=== PATIENT | male | born 1940 | race African-American/Black ===

== ENCOUNTER 2018-08-20 13:00 | Inpatient (IN) | payer BC ==
[2018-08-24 14:23] VITALS: BMI 26.4
[2018-08-25 07:18] LABS: URINE APPEARANCE CLEAR; URINE BILIRUBIN NEGATIVE (<2.0 mg/dL); URINE COLOR STRAW; URINE GLUCOSE (UA) NEGATIVE (NEGATIVE); URINE KETONE NEGATIVE (NEGATIVE); URINE LEUK ESTERASE NEGATIVE (NEGATIVE); URINE NITRITE NEGATIVE (NEGATIVE); URINE PROTEIN NEGATIVE (NEGATIVE); URINE UROBILINOGEN NEGATIVE mg/dL (0.2-1.0)
[2018-08-25] MEDS ORDERED: CEFAZOLIN 2 GM in DEXTROSE 5%-WATER - 100 ML IVPB ONE (08:27)
[2018-08-25] MEDS ORDERED: MIDAZOLAM HCL 2 MG/2 ML SINGLE DOSE VIAL ONE ×2 (08:45)
[2018-08-25] MEDS ORDERED: PROPOFOL 20 ML ONE (08:45)
[2018-08-25] MEDS ORDERED: ROCURONIUM BROMIDE 50 MG/5 ML VIAL ONE ×2 (08:45→10:41)
[2018-08-25] MEDS ORDERED: niCARdipine HCL 25 MG/10 ML - 10 ML VIAL IVPB ONE (08:45)
[2018-08-25] MEDS ORDERED: fentaNYL CITRATE 250 MCG/5 ML VIAL ONE (08:45)
[2018-08-25] MEDS ORDERED: LIDOCAINE HCL/PF 2% SDV 5ML VIAL ONE (08:45)
[2018-08-25] MEDS ORDERED: LIDOCAINE HCL 0.5%, 5 MG/ML (50mL SDVIAL) ONE ×2 (09:08→10:18)
[2018-08-25] MEDS ORDERED: HEPARIN NA (PORCINE) 5,000 UNITS/ML 1ML VIAL ONE (09:08)
[2018-08-25] MEDS ORDERED: ceFAZolin SODIUM 1 GM VIAL IVPB ONE (10:10)
[2018-08-25] MEDS ORDERED: ceFAZolin SODIUM 1 GM VIAL ONE (10:30)
[2018-08-25] MEDS ORDERED: GLYCOPYRROLATE 0.2 MG/1 ML VIAL ONE ×2 (10:39→11:12)
[2018-08-25] MEDS ORDERED: ePHEDrine SULFATE 50 MG/1 ML AMPULE ONE (10:48)
[2018-08-25] MEDS ORDERED: BUPIVACAINE HCL/PF 0.25% (2.5MG/ML) 10 ML VIAL IJ ONE (11:00)
[2018-08-25] MEDS ORDERED: DEXAMETHASONE SOD PHOSPHATE 4 MG/1 ML VIAL ONE (11:12)
[2018-08-25] MEDS ORDERED: ONDANSETRON 4 MG/2 ML VIAL ONE (11:12)
[2018-08-25] MEDS ORDERED: NEOSTIGMINE METHYLSULFATE 0.5 MG/1 ML - 10 ML MDV ONE ×2 (11:13→11:31)
--- NOTE | 2018-08-25 11:43 | OP ---
Operative Note - Note: Operative Date: 08/25/18 Pre-Operative Diagnosis: Right carotid stenosis Operation: Right carotid endarterectomy Post-Operative Diagnosis: Same as Pre-op Surgeon: Latoya Garaz Fishing Tackle Repairer: Alfredo Gomez Anesthesia: General Estimated Blood Loss (mls): 50 Fluid Volume Replaced (mls): 1,000 Operative Report Dictated: Yes
--- NOTE | 2018-08-25 11:45 | SURG ---
Surgery Rug Inspector Note Rug Inspector: Alfredo Gomez PA-C Date of Service: 08/25/18 Diagnosis: Right carotid stenosis Procedure: Right Carotid endarterectomy I was present for the entirety of the operative procedure. For further detail, please refer to operative report. Visit type - Case Type Case Type: Scheduled - Emergency Emergency Visit: No - New patient This patient is new to me today: Yes Date on this admission: 08/25/18
[2018-08-25] MEDS ORDERED: ONDANSETRON 4 MG/2 ML VIAL IVPUSH PRN ×2 (12:17→14:23)
--- NOTE | 2018-08-25 12:22 | CONSULT ---
Consultation: REQUESTING PROVIDER: CONSULT REQUEST: We have been asked to medically evaluate this patient for ( specify). HISTORY OF PRESENT ILLNESS: 77 year old man with history of HTN, HLD, DM and R carotid stenosis who presents s/p R carotid endarterectomy. REVIEW OF SYSTEMS: CONSTITUTIONAL: Absent: fever, chills, diaphoresis, generalized weakness, malaise, loss of appetite, weight change HEENT: Absent: rhinorrhea, nasal congestion, throat pain, throat swelling, difficulty swallowing, mouth swelling, ear pain, eye pain, visual changes CARDIOVASCULAR: Absent: chest pain, syncope, palpitations, irregular heart rate, lightheadedness , peripheral edema RESPIRATORY: Absent: cough, shortness of breath, dyspnea with exertion, orthopnea, wheezing, stridor, hemoptysis GASTROINTESTINAL: Absent: abdominal pain, abdominal distension, nausea, vomiting, diarrhea, constipation, melena, hematochezia GENITOURINARY: Absent: dysuria, frequency, urgency, hesitancy, hematuria, flank pain, genital pain MUSCULOSKELETAL: Absent: myalgia, arthralgia, joint swelling, back pain, neck pain SKIN: Absent: rash, itching, pallor HEMATOLOGIC/IMMUNOLOGIC: Absent: easy bleeding, easy bruising, lymphadenopathy, frequent infections ENDOCRINE: Absent: unexplained weight gain, unexplained weight loss, heat intolerance, cold intolerance NEUROLOGIC: Absent: headache, focal weakness or paresthesias, dizziness, unsteady gait, seizure, mental status changes, bladder or bowel incontinence PSYCHIATRIC: Absent: anxiety, depression, suicidal or homicidal ideation, hallucinations. PHYSICAL EXAMINATION Vital Signs - 24 hr 08/25/18 08/25/18 08/25/18 07:55 07:57 11:50 Temperature 98.1 F 97.7 F Pulse Rate 72 62 Respiratory 18 9 L Rate Blood Pressure 150/86 148/74 O2 Sat by Pulse 99 100 Oximetry (%) 08/25/18 08/25/18 08/25/18 11:59 12:00 12:15 Temperature 98.4 F 98.4 F 97.8 F Pulse Rate 64 64 64 Respiratory 11 11 11 Rate Blood Pressure 155/81 155/81 148/82 O2 Sat by Pulse Oximetry (%) GENERAL: Awake, alert, on O2 mask HEAD: Normal with no signs of trauma. EYES: Pupils equal, round and reactive to light, extraocular movements intact, sclera anicteric, conjunctiva clear. No lid lag. EARS, NOSE, THROAT: Moist mucous membranes. NECK: + R sided wound dressing with sanguinous drainage LUNGS: Breath sounds equal, clear to auscultation bilaterally. No wheezes, and no crackles. No accessory muscle use. HEART: Regular rate and rhythm, normal S1 and S2 without murmur, rub or gallop. ABDOMEN: Soft, nontender, not distended, normoactive bowel sounds, no guarding, no rebound, no masses. No hepatomegaly or splenomegaly. MUSCULOSKELETAL: Normal range of motion at all joints. No bony deformities or tenderness. No CVA tenderness. UPPER EXTREMITIES: 2+ pulses, warm, well-perfused. No cyanosis. No clubbing. Cap refill <2 seconds. No peripheral edema. LOWER EXTREMITIES: 2+ pulses, warm, well-perfused. No calf tenderness. No peripheral edema. NEUROLOGICAL: awake, alert, on O2 mask PSYCHIATRIC: Cooperative. Good eye contact. SKIN: Warm, dry, normal turgor, no rashes or lesions noted. Laboratory Results - last 24 hr 08/25/18 08/25/18 08/25/18 07:10 07:10 08:10 POC Glucometer Urine Color Straw Urine Appearance Clear Urine pH 6.0 Ur Specific [place] 1.008 L Urine Protein Negative Urine Glucose (UA) Negative Urine Ketones Negative Urine Blood Negative Urine Nitrite Negative Urine Bilirubin Negative Urine Urobilinogen Negative Ur Leukocyte Esterase Negative Blood Type B POSITIVE B POSITIVE Antibody Screen Negative 08/25/18 08:15 POC Glucometer 129 Urine Color Urine Appearance Urine pH Ur Specific [place] Urine Protein Urine Glucose (UA) Urine Ketones Urine Blood Urine Nitrite Urine Bilirubin Urine Urobilinogen Ur Leukocyte Esterase Blood Type Antibody Screen Active Medications Generic Name Dose Route Start Last Admin Trade Name Freq PRN Reason Stop Dose Admin Amlodipine Besylate 5 mg 08/26/18 10:00 Norvasc - PO DAILY DIANE Aspirin 81 mg 08/25/18 11:45 Ecotrin - PO DAILY DIANE Atorvastatin Calcium 10 mg 08/25/18 22:00 Lipitor - PO HS DIANE Fentanyl 50 mcg 08/25/18 12:17 Sublimaze Injection - IVPUSH [id number] PRN PAIN-PACU ORDER X 4 DOSES ONLY Cefazolin Sodium 2 gm/ 100 mls @ 200 mls/hr 08/25/18 18:00 Dextrose IVPB 08/26/18 02:29 Q8HIV DIANE Lactated Ringer's 1,000 mls @ 75 mls/hr 08/25/18 12:30 Lactated Ringers Solution IV ASDIR DIANE Nicardipine HCl 25 mg/ 250 mls @ 25 mls/hr 08/25/18 12:30 Dextrose IVPB TITR DIANE Protocol 2.5 MG/HR Metformin HCl 1,000 mg 08/25/18 22:00 Glucophage - PO BID DIANE Non-Formulary Medication 100 mg 08/26/18 10:00 Losartan Potassium [Losartan Potassium] PO DAILY DIANE Ondansetron HCl 4 mg 08/25/18 12:17 Zofran Injection IVPUSH Q6H PRN NAUSEA AND/OR VOMITING ASSESSMENT/PLAN: 77 year old man with history of HTN, HLD, DM and R carotid stenosis who presents s/p R carotid endarterectomy. Vascular R carotid stenosis s/p carotid endartectomy - Neuro check Q2H - BP monitoring < 160 systolic Cardio HTN, HLD - Amlodipine 5mg daily - ASA 81 mg daily - Atorvastatin 10mg HS - Losartan 100mg daily - Nicardipine 2.5mg/hr gtt Pulm - 5L on O2 mask, supplemental oxygen as needed - IS Endo DM - Metformin 1gm BID Analgesia - Fentanyl 50mcg IVP F/E/N - LR @ 75 - diabetic diet GI ppx: DVT ppx: SCDs Lines, Tubes: JARROD drain at R incision site, PIV Code status: Full Dispo: We will continue to follow the patient. Thank you for this consultative opportunity. Visit type - Emergency Visit Emergency Visit: No - New Patient This patient is new to me today: Yes Date on this admission: 08/25/18 - Critical Care Critical Care patient: Yes Total Critical Care Time (in minutes): 35 Critical Care Statement: The care of this patient involved high complexity decision making to prevent further life threatening deterioration of the patient 's condition and/or to evaluate & treat vital organ system(s) failure or risk of failure.
[2018-08-25] MEDS: LACTATED RINGERS SOLUTION 1,000 ML IV SCH (12:40)
[2018-08-25] MEDS ORDERED: NICARDIPINE 25 MG in DEXTROSE 5%-WATER - 240 ML IVPB SCH (12:45)
--- NOTE | 2018-08-25 12:49 | OP ---
DATE OF OPERATION: 08/25/2018 PREOPERATIVE DIAGNOSIS: High grade right carotid stenosis with history of amaurosis fugax. POSTOPERATIVE DIAGNOSIS: High grade right carotid stenosis with history of amaurosis fugax. OPERATIVE PROCEDURE: Right carotid endarterectomy and jugular vein patch. SURGEON: Lea Garza MD LOGGING ENGINEER: SIMRAN Nunes ANESTHESIA: General endotracheal intubation. DESCRIPTION OF PROCEDURE: This 77-year-old man was sent to the office for evaluation of the high grade right carotid stenosis. Patient had apparently history of amaurosis fugax, but no TIA or strokes, and patient had a preoperative evaluation with MRA and carotid. Both showed 90% carotid stenosis. Patient was brought to the operating room, and the right neck was prepped and draped in the usual manner, and general anesthesia was administered, intravenous antibiotic was given, and a common carotid internal and external were isolated in the usual manner by dissection in the carotid sheath, and during the course of the surgery, external jugular vein was harvested a distance of about 6-7 cm long, and both ends were tied with 2-0 silk, and plaque was found to be going high up in the neck, and the was isolated beyond the plaque, and care was taken to avoid injury to the hypoglossal nerve, glossopharyngeal nerve, and the vagus nerve, and all of them were visualized and preserved. Following which, the patient was given 5000 units of heparin, and arteries were appropriately clamped, and Bard shunt was introduced initially in the internal, and it was then put into the common and flow was established after adequately freshening the shunt, and the findings showed a tight stenosis with subhemorrhagic plaque and with some fresh thrombus, and endarterectomy was done with all the plaque removed completely. Once the smooth surface of the floor of the endarterectomy site was established, the jugular vein which was used was everted and patched as a double layer, starting from the internal and into the common, and prior to closing, the shunt was removed, and it was flushed appropriately, and the flow was established initially into the external and to the internal, and after adequate hemostasis, a Cristian-Burton was introduced, brought through the separate skin incision. Marcaine was injected. Platysma and the skin were closed, and patient went to the recovery room extubated with no neurological deficit. LEA GARZA M.D. /[id number]
[2018-08-25] MEDS: ASPIRIN COATED 81 MG TABLET.EC PO SCH (13:30)
--- NOTE | 2018-08-25 14:46 | HP ---
CHIEF COMPLAINT: S/p CEA PCP: Oralia Sibley MD HISTORY OF PRESENT ILLNESS: 77 year old man with a PMH significant for HTN, HLD, DM, prostate ca s/p prostatectomy, and high grade right carotid stenosis with hx of amaurosis fugax had right carotid endarterectomy today with vascular surgeon Dr. Garza. Pre- op MRA and carotid US showed 90% carotid stenosis. Procedure was without complications and a large plaque was removed from the artery. JARROD drain was placed. Patient admitted to the ICU for post op monitoring. . Patient noted with saturated gauze with sanginous drainage. Surgery team placed suture to secure drain and surgicell dressing. JARROD drain patent with sero-sang drainage. Recent Travel: [place] in January PAST MEDICAL HISTORY: HTN HLD DM R carotid stenosis Glaucoma Gout Prostate cancer s/p radiation PAST SURGICAL HISTORY: Prostatectomy 2010 Cataract surgery Social History: Smoking: Former Alcohol: No Drugs: Denies Family History: Mother: [place], age 50 Father Brother: Prostate cancer Sister: Breast cancer, Allergies No Known Allergies Allergy (Verified 08/25/18 07:59) HOME MEDICATIONS: Home Medications Medication Instructions Recorded Amlodipine Besylate 5 mg PO DAILY 08/24/18 Atorvastatin Ca [Lipitor] 10 mg PO HS 08/24/18 Losartan Potassium 100 mg PO DAILY 08/24/18 metFORMIN HCL [Glucophage -] 1,000 mg PO BID 08/24/18 REVIEW OF SYSTEMS CONSTITUTIONAL: Absent: fever, chills, diaphoresis, generalized weakness, malaise, loss of appetite, weight change HEENT: Absent: rhinorrhea, nasal congestion, throat pain, throat swelling, difficulty swallowing, mouth swelling, ear pain, eye pain, visual changes CARDIOVASCULAR: Absent: chest pain, syncope, palpitations, irregular heart rate, lightheadedness , peripheral edema RESPIRATORY: Absent: cough, shortness of breath, dyspnea with exertion, orthopnea, wheezing, stridor, hemoptysis GASTROINTESTINAL: Absent: abdominal pain, abdominal distension, nausea, vomiting, diarrhea, constipation, melena, hematochezia GENITOURINARY: Absent: dysuria, frequency, urgency, hesitancy, hematuria, flank pain, genital pain MUSCULOSKELETAL: Absent: myalgia, arthralgia, joint swelling, back pain, neck pain SKIN: Absent: rash, itching, pallor HEMATOLOGIC/IMMUNOLOGIC: Absent: easy bleeding, easy bruising, lymphadenopathy, frequent infections ENDOCRINE: Absent: unexplained weight gain, unexplained weight loss, heat intolerance, cold intolerance NEUROLOGIC: Absent: headache, focal weakness or paresthesias, dizziness, unsteady gait, seizure, mental status changes, bladder or bowel incontinence PSYCHIATRIC: Absent: anxiety, depression, suicidal or homicidal ideation, hallucinations. PHYSICAL EXAMINATION Vital Signs - 24 hr 08/25/18 08/25/18 08/25/18 07:55 07:57 11:50 Temperature 98.1 F 97.7 F Pulse Rate 72 62 Respiratory 18 9 L Rate Blood Pressure 150/86 148/74 O2 Sat by Pulse 99 100 Oximetry (%) 08/25/18 08/25/18 08/25/18 11:59 12:00 12:15 Temperature 98.4 F 98.4 F 97.8 F Pulse Rate 64 64 64 Respiratory 11 11 11 Rate Blood Pressure 155/81 155/81 148/82 O2 Sat by Pulse Oximetry (%) 08/25/18 08/25/18 08/25/18 12:30 12:45 13:02 Temperature 97.4 F L 97.5 F L Pulse Rate 62 58 L 59 L Respiratory 11 11 11 Rate Blood Pressure 150/75 144/64 150/82 O2 Sat by Pulse Oximetry (%) 08/25/18 13:28 Temperature Pulse Rate 59 L Respiratory Rate Blood Pressure 160/82 O2 Sat by Pulse Oximetry (%) GENERAL: Awake, alert, and fully oriented, in no acute distress. HEAD: Normal with no signs of trauma. EYES: Arcus senilis b/l, Pupils equal, round and reactive to light, extraocular movements intact, sclera anicteric, conjunctiva clear. No lid lag. EARS, NOSE, THROAT: Ears normal, nares patent, oropharynx clear without exudates. Moist mucous membranes. NECK: Normal range of motion, supple without lymphadenopathy, JVD, or masses. LUNGS: Breath sounds equal, clear to auscultation bilaterally. No wheezes, and no crackles. No accessory muscle use. HEART: Regular rate and rhythm, normal S1 and S2 without murmur, rub or gallop. ABDOMEN: Soft, nontender, not distended, normoactive bowel sounds, no guarding, no rebound, no masses. No hepatomegaly or splenomegaly. MUSCULOSKELETAL: Normal range of motion at all joints. No bony deformities or tenderness. No CVA tenderness. UPPER EXTREMITIES: 2+ pulses, warm, well-perfused. No cyanosis. No clubbing. No peripheral edema. LOWER EXTREMITIES: 2+ pulses, warm, well-perfused. No calf tenderness. No peripheral edema. NEUROLOGICAL: Cranial nerves II-XII intact. Normal speech. Normal gait. PSYCHIATRIC: Cooperative. Good eye contact. Appropriate mood and affect. SKIN: Warm, dry, normal turgor, no rashes or lesions noted, normal capillary refill. Laboratory Results - last 24 hr 08/25/18 08/25/18 08/25/18 07:10 07:10 08:10 POC Glucometer Urine Color Straw Urine Appearance Clear Urine pH 6.0 Ur Specific [place] 1.008 L Urine Protein Negative Urine Glucose (UA) Negative Urine Ketones Negative Urine Blood Negative Urine Nitrite Negative Urine Bilirubin Negative Urine Urobilinogen Negative Ur Leukocyte Esterase Negative Blood Type B POSITIVE B POSITIVE Antibody Screen Negative 08/25/18 08:15 POC Glucometer 129 Urine Color Urine Appearance Urine pH Ur Specific [place] Urine Protein Urine Glucose (UA) Urine Ketones Urine Blood Urine Nitrite Urine Bilirubin Urine Urobilinogen Ur Leukocyte Esterase Blood Type Antibody Screen ASSESSMENT/PLAN: 77 year old man with a PMH significant for HTN, HLD, DM and R carotid stenosis had right carotid endarterectomy today with vascular surgeon Dr. Garza. He was admitted to the ICU for post op monitoring. Carotid endarterectomy - High grade right carotid stenosis with hx of amaurosis fugax - PO day 0 - Ancef 2 G IVP q8h x 24 hrs - + JARROD drain with sanguinous drainage - P/o bleeding, gauze saturated with reji blood from 2 sites along incision - Gauze changed 3x - Surgical team placed one suture to secure drain - Surgicell placed around drain ostomy with 4x4 dressing and tegaderms. - Now with hematoma - Monitor CBC - Pain management - HEALTH SUPPORT SPECIALIST with Fentanyl HTN - Maintain SBP < 160 - ASA 81 mg PO qday - Amlodipine 5 mg PO qday - Losartan 100 mg PO qday - Nicardipine 2.5mg/hr gtt HLD - Atorvastatin 10 mg PO QHS DM - HOLD home Metformin 1000 mg PO qday - Fingerstick monitoring - SS with novolog FEN - LR @ 75 cc/hr - Replete as needed - Diabetic, low cholesterol diet Prophylaxis - SCDs, no AC until after bleeding has subsided Disp: Patient requires management in the ICU until stable enough to [facility] floor. Visit type - Emergency Visit Emergency Visit: No - New Patient This patient is new to me today: No - Critical Care Critical Care patient: Yes Total Critical Care Time (in minutes): 35 Critical Care Statement: The care of this patient involved high complexity decision making to prevent further life threatening deterioration of the patient 's condition and/or to evaluate & treat vital organ system(s) failure or risk of failure.
--- NOTE | 2018-08-25 14:51 | PN ---
Progress Note (short form) - Note Progress Note: Called to the ICU to evaluate post op dressing. Patient A&Ox3 NAD with unlabored resp on RA and trachea midline. Patient with no evidence of airway compromise or dysphagia. The gauze dressing is completely saturated with blood and actively draining reji blood from 2 sites along the incision with steven in situ. There is evidence of a hematoma along proximal margin of the incision, no pulsatile mass on exam. The drain is securely in place with some active bleeding around the drain ostomy. Drain with 30cc of reji blood (60cc after drain stripped.) Surgicell was placed along the incision margin and around the drain ostomy, then reinforced with a bulky 4x4 dressing and tegaderms. Will order CBC this evening and re-evaluate the patient later this afternoon. Evaluation and management discussed with Dr Garza.
[2018-08-25 16:01] LABS: BASO % 0.2 % (0-2.0); EOS % 0.1 % (0-4.5); HEMATOCRIT 35.3 % (35.4-49); HEMOGLOBIN 12.2 GM/dL (11.7-16.9); LYMPH % 4.8 % (8-40); MCH 29.7 pg (25.7-33.7); MCHC 34.7 g/dl (32.0-35.9); MEAN CELL VOLUME 85.6 fl (80-96); MONO % 3.3 % (3.8-10.2); NEUT % 91.6 % (42.8-82.8); PLATELET COUNT 140 K/MM3 (134-434); RBC 4.12 M/mm3 (4.00-5.60); RDW 14.6 % (11.9-15.9); WHITE BLOOD COUNT 8.8 K/mm3 (4.0-10.0)
[2018-08-25 16:23] LABS: ALBUMIN 3.5 g/dl (3.4-5.0); ALK PHOS 65 U/L (45-117); ANION GAP 10 MMOL/L (8-16); BILIRUBIN,TOTAL 0.8 mg/dL (0.2-1); BLOOD UREA NITROGEN 17 mg/dL (7-18); CALCIUM 8.6 mg/dL (8.5-10.1); CHLORIDE 106 mmol/L (98-107); CO2 23 mmol/L (21-32); CREATININE 1.2 mg/dL (0.55-1.3); GLUCOSE,RANDOM 159 mg/dL (74-106); MAGNESIUM 1.5 mg/dL (1.8-2.4); PHOSPHOROUS 3.5 mg/dL (2.5-4.9); POTASSIUM 4.6 mmol/L (3.5-5.1); SGOT/AST 20 U/L (15-37); SGPT/ALT 19 U/L (13-61); SODIUM 138 mmol/L (136-145); TOT PROT 6.9 g/dl (6.4-8.2)
[2018-08-25 16:26] LABS: INR 1.23 (0.83-1.09); PROTHROMBIN TIME (PATIENT) 14.6 SEC (9.7-13.0)
[2018-08-25] MEDS ORDERED: INSULIN SLIDING SCALE (NOVOLOG) 1 VIAL SQ SCH (16:30)
[2018-08-25] MEDS ORDERED: metFORMIN HCL 500 MG TABLET (FP) PO SCH (16:45)
[2018-08-25 17:10] LABS: PLATELET ESTIMATE ADEQUATE
[2018-08-25] MEDS: CEFAZOLIN 2 GM/D5W 2 GM/50 ML ML IVPB SCH (17:22)
[2018-08-25] MEDS ORDERED: amLODIPine BESYLATE 5 MG TABLET (FP) PO ONE (20:15)
[2018-08-25] MEDS: MUPIROCIN 2% TOPICAL OINTMENT FOR DECOLONIZATION NS SCH (21:38)
[2018-08-25] MEDS: INSULIN SLIDING SCALE (NOVOLOG) 1 VIAL SQ SCH (21:57)
[2018-08-25] MEDS ORDERED: ATORVASTATIN CA 10 MG TABLET (FP) PO SCH (22:00)
[2018-08-25] MEDS ORDERED: CHLORHEXIDINE GLUCONATE 4% CLEANSER FOR DECOLONIZATION TP SCH (22:00)
[2018-08-25] MEDS ORDERED: ACETAMINOPHEN 500 MG TABLET (FP) PO PRN (23:11)
[2018-08-26] MEDS: CEFAZOLIN 2 GM/D5W 2 GM/50 ML ML IVPB SCH ×2 (01:17→10:04)
[2018-08-26] MEDS: LACTATED RINGERS SOLUTION 1,000 ML IV SCH (01:19)
[2018-08-26 06:07] LABS: BASO % 0.3 % (0-2.0); EOS % 0.3 % (0-4.5); HEMATOCRIT 31.6 % (35.4-49); HEMOGLOBIN 10.4 GM/dL (11.7-16.9); LYMPH % 14.1 % (8-40); MCH 28.1 pg (25.7-33.7); MCHC 32.9 g/dl (32.0-35.9); MEAN CELL VOLUME 85.7 fl (80-96); MEAN PLT VOLUME 9.6 fl (7.5-11.1); MONO % 10.4 % (3.8-10.2); NEUT % 74.9 % (42.8-82.8); PLATELET COUNT 124 K/MM3 (134-434); RBC 3.69 M/mm3 (4.00-5.60); RDW 14.5 % (11.9-15.9); WHITE BLOOD COUNT 7.3 K/mm3 (4.0-10.0)
[2018-08-26 06:20] LABS: INR 1.28 (0.83-1.09); PROTHROMBIN TIME (PATIENT) 15.1 SEC (9.7-13.0)
[2018-08-26 06:21] LABS: ACTIVATED PTT 33.8 SECONDS (25.2-36.5)
[2018-08-26 06:33] LABS: ALK PHOS 51 U/L (45-117); ANION GAP 8 MMOL/L (8-16); BILIRUBIN,TOTAL 0.6 mg/dL (0.2-1); BLOOD UREA NITROGEN 21 mg/dL (7-18); CALCIUM 8.5 mg/dL (8.5-10.1); CHLORIDE 104 mmol/L (98-107); CO2 27 mmol/L (21-32); CREATININE 1.4 mg/dL (0.55-1.3); GLUCOSE,RANDOM 125 mg/dL (74-106); MAGNESIUM 1.5 mg/dL (1.8-2.4); PHOSPHOROUS 3.9 mg/dL (2.5-4.9); POTASSIUM 4.3 mmol/L (3.5-5.1); SGOT/AST 17 U/L (15-37); SGPT/ALT 15 U/L (13-61); SODIUM 139 mmol/L (136-145); TOT PROT 5.9 g/dl (6.4-8.2)
[2018-08-26] MEDS: INSULIN SLIDING SCALE (NOVOLOG) 1 VIAL SQ SCH ×2 (06:35→11:38)
[2018-08-26] MEDS ORDERED: MAGNESIUM SULF 50% (8.12 MEQ/2 ML-1 GM VIAL) IVPB ONE ×2 (08:00→09:30)
--- NOTE | 2018-08-26 08:07 | PN ---
Progress Note (short form) - Note Progress Note: POD #1 Alert. Sitting-up in bed. C/o mild incisional tenderness. Adequate pain control via PRN PO meds. Per yesterday note s/p procedure, SIMRAN Gomez was called secondary to oozing around JARROD site. Surgicel applied. Good hemostasis...no bleeding since. He is voiding. Denies n/v/f/c/, CP, SOB, numbness/tingling to UE. Last Vital Signs Temp Pulse Resp BP Pulse Ox 98.8 F 62 12 117/68 95 08/26/18 06:00 08/26/18 06:00 08/26/18 06:00 08/26/18 06:00 08/26/18 06:00 CBC, BMP 08/26/18 05:30 08/26/18 05:30 OUTPUT 08/25/18 08/25/1818 08/26/18 15:00 18:28 23:00 06:33 JARROD 55 20 30 15 PE Gen: nad Neck: JARROD on bulb suction (serosang). Transverse incision with steven c/d/i. Soft tissues. No palpable hematoma. Neuro: Negative lingual deviation. Shoulder shrug bilat intact 5/5 Problem List - Problems (1) Carotid stenosis, right Assessment/Plan: POD #1 s/p Right CEA Doing well. Advance diet as tolerated. Cont Incentive spirometer. JARROD removed on rounds. Script for Tramadol escribed. f/u with Dr. Garza as outlined in DC PLAN. Cleared for dc home this morning. Above plan discussed with my attending and agrees. Code(s): I65.21 - OCCLUSION AND STENOSIS OF RIGHT CAROTID ARTERY
[2018-08-26] MEDS ORDERED: amLODIPine BESYLATE 5 MG TABLET (FP) PO SCH (10:00)
[2018-08-26] MEDS ORDERED: LOSARTAN POTASSIUM 50 MG TABLET (FP) PO SCH (10:00)
[2018-08-26] MEDS: MUPIROCIN 2% TOPICAL OINTMENT FOR DECOLONIZATION NS SCH (10:00)
[2018-08-26] MEDS: ASPIRIN COATED 81 MG TABLET.EC PO SCH (10:00)
[2018-08-26 10:38] VITALS: TEMP 99.6
--- NOTE | 2018-08-26 11:04 | PN ---
Teaching Attending Note Name of Resident: Janice Yang ATTENDING PHYSICIAN STATEMENT I saw and evaluated the patient. I reviewed the resident's note and discussed the case with the resident. I agree with the resident's findings and plan as documented. SUBJECTIVE: Pt seen and examined in the ICU. s/p R CEA without reported complications. No specific complaints this AM. No headache, nausea or vomiting. No focal deficits. Tolerating PO. OBJECTIVE: Vital Signs Period Temp Pulse Resp BP Sys/[place] Pulse Ox Last 24 Hr 97.4 F-100 F 58-82 9-19 97-160/55-82 95-100 Intake & Output 08/23/18 08/24/18 08/25/18 08/26/18 23:59 23:59 23:59 23:59 Intake Total 2677.5 1900 Output Total 455 315 Balance 2222.5 1585 Weight 86.183 kg Gen: NAD in chair Heart: RRR Lung: decreased breath sounds at the bases Abd: soft, nontender Ext: no edema CBC, BMP 08/26/18 05:30 08/26/18 05:30 Active Medications Acetaminophen (Tylenol -) 1,000 mg PO Q6H PRN PRN Reason: fever or pain Amlodipine Besylate (Norvasc -) 5 mg PO DAILY [facility] Last Admin: 08/26/18 10:00 Dose: 5 mg Aspirin (Ecotrin -) 81 mg PO DAILY [facility] Last Admin: 08/26/18 10:00 Dose: 81 mg Atorvastatin Calcium (Lipitor -) 10 mg PO HS [facility] Last Admin: 08/25/18 21:12 Dose: 10 mg Chlorhexidine Gluconate (Hibiclens For Decolonization -) 1 applic TP [facility] Last Admin: 08/25/18 21:12 Dose: 1 applic Fentanyl (Sublimaze Injection -) 50 mcg IVPUSH [id number] PRN PRN Reason: PAIN-PACU ORDER X 4 DOSES ONLY Last Admin: 08/25/18 12:29 Dose: 50 mcg Cefazolin Sodium/Dextrose (Ancef 2 Gm Premixed Ivpb -) 2 gm in 50 mls @ 100 mls /hr IVPB Q8HIV [facility] Stop: 08/26/18 17:59 Last Admin: 08/26/18 10:04 Dose: 100 mls/hr Lactated Ringer's (Lactated Ringers Solution) 1,000 mls @ 75 mls/hr IV ASDIR [facility] Last Admin: 08/26/18 01:19 Dose: 75 mls/hr Nicardipine HCl 25 mg/ (Dextrose) 250 mls @ 25 mls/hr IVPB TITR [facility]; Protocol Last Titration: 08/25/18 14:30 Dose: 0 mg/hr, 0 mls/hr Insulin Aspart (Novolog Vial Sliding Scale -) 1 vial SQ ACHS [facility]; Protocol Last Admin: 08/26/18 06:35 Dose: Not Given Losartan Potassium (Cozaar -) 100 mg PO DAILY [facility] Last Admin: 08/26/18 10:00 Dose: 100 mg Mupirocin (Bactroban Ointment (For Decolonization) -) 1 applic NS BID [facility] Stop: 08/30/18 21:59 Last Admin: 08/26/18 10:00 Dose: 1 applic Ondansetron HCl (Zofran Injection) 4 mg IVPUSH Q6H PRN PRN Reason: NAUSEA AND/OR VOMITING Last Admin: 08/25/18 14:19 Dose: 4 mg Ondansetron HCl (Zofran Injection) 4 mg IVPUSH Q6H PRN PRN Reason: NAUSEA AND/OR VOMITING ASSESSMENT AND PLAN: R Carotid Stenosis s/p R CEA POD 1 Acute Kidney Injury HTN DM Hyperlipidemia Prostate Ca - BP control - neuro checks - IVF - monitor urine output, creatinine - ASA, statin - d/c planning in progress
--- NOTE | 2018-08-26 12:11 | DS ---
Physical Exam: SUBJECTIVE: Patient seen and examined he reports he is feeling well and he as tolerated food. Denies pain. Cleared for d/c today OBJECTIVE: Vital Signs Period Temp Pulse Resp BP Sys/Caballero Pulse Ox Last 24 Hr 97.4 F-100 F 58-82 10-19 97-160/55-82 95-100 PHYSICAL EXAM GENERAL: The patient is awake, alert, and fully oriented, in no acute distress. HEAD: Normal with no signs of trauma. EYES: Arcus senils b/lPERRL, extraocular movements intact, sclera anicteric, conjunctiva clear. ENT: Ears normal, nares patent, oropharynx clear without exudates, moist mucous membranes. NECK: +Dry gauze to base of right neck, no strike trhough, trachea midline, full range of motion, supple. LUNGS: Breath sounds equal, clear to auscultation bilaterally, no wheezes, no crackles, no accessory muscle use. HEART: Regular rate and rhythm, S1, S2 without murmur, rub or gallop. ABDOMEN: Soft, nontender, nondistended, normoactive bowel sounds, no guarding, no rebound, no hepatosplenomegaly, no masses. EXTREMITIES: 2+ pulses, warm, well-perfused, no edema. NEUROLOGICAL: No facial droop, tongue midline, normal speech, gait not observed. PSYCH: Normal mood, normal affect. SKIN: Warm, dry, normal turgor, no rashes or lesions noted. LABS Laboratory Results - last 24 hr 08/25/18 08/25/18 08/25/18 13:50 14:45 14:45 WBC 8.8 RBC 4.12 Hgb 12.2 Hct 35.3 L MCV 85.6 MCH 29.7 MCHC 34.7 RDW 14.6 Plt Count 140 MPV 10.0 Absolute Neuts (auto) 8.0 Neutrophils % 91.6 H Neutrophils % (Manual) 78.0 Band Neutrophils % 13.0 Lymphocytes % 4.8 L Lymphocytes % (Manual) 7.0 L Monocytes % 3.3 L Monocytes % (Manual) 2 L Eosinophils % 0.1 Eosinophils % (Manual) 0.0 Basophils % 0.2 Basophils % (Manual) 0.0 Nucleated RBC % 0 Platelet Estimate Adequate PT with INR INR PTT (Actin FS) Sodium 138 Potassium 4.6 Chloride 106 Carbon Dioxide 23 Anion Gap 10 BUN 17 Creatinine 1.2 Creat Clearance w eGFR 58.56 POC Glucometer [phone] Random Glucose 159 H Calcium 8.6 Phosphorus 3.5 Magnesium 1.5 L Total Bilirubin 0.8 AST 20 ALT 19 Alkaline Phosphatase 65 Total Protein 6.9 Albumin 3.5 08/25/18 08/25/18 08/25/18 14:45 14:45 17:19 WBC RBC Hgb Hct MCV MCH MCHC RDW Plt Count MPV Absolute Neuts (auto) Neutrophils % Neutrophils % (Manual) Band Neutrophils % Lymphocytes % Lymphocytes % (Manual) Monocytes % Monocytes % (Manual) Eosinophils % Eosinophils % (Manual) Basophils % Basophils % (Manual) Nucleated RBC % Platelet Estimate PT with INR 14.60 H INR 1.23 H PTT (Actin FS) 30.5 Sodium Potassium Chloride Carbon Dioxide Anion Gap BUN Creatinine Creat Clearance w eGFR POC Glucometer [phone] Random Glucose Calcium Phosphorus Magnesium Total Bilirubin AST ALT Alkaline Phosphatase Total Protein Albumin 08/25/18 08/26/18 08/26/18 21:44 05:30 05:30 WBC 7.3 RBC 3.69 L Hgb 10.4 L Hct 31.6 L MCV 85.7 MCH 28.1 MCHC 32.9 RDW 14.5 Plt Count 124 L MPV 9.6 Absolute Neuts (auto) 5.4 Neutrophils % 74.9 Neutrophils % (Manual) Band Neutrophils % Lymphocytes % 14.1 D Lymphocytes % (Manual) Monocytes % 10.4 H D Monocytes % (Manual) Eosinophils % 0.3 D Eosinophils % (Manual) Basophils % 0.3 Basophils % (Manual) Nucleated RBC % 0 Platelet Estimate PT with INR 15.10 H INR 1.28 H PTT (Actin FS) 33.8 Sodium Potassium Chloride Carbon Dioxide Anion Gap BUN Creatinine Creat Clearance w eGFR POC Glucometer [phone] Random Glucose Calcium Phosphorus Magnesium Total Bilirubin AST ALT Alkaline Phosphatase Total Protein Albumin 08/26/18 08/26/18 05:30 11:31 WBC RBC Hgb Hct MCV MCH MCHC RDW Plt Count MPV Absolute Neuts (auto) Neutrophils % Neutrophils % (Manual) Band Neutrophils % Lymphocytes % Lymphocytes % (Manual) Monocytes % Monocytes % (Manual) Eosinophils % Eosinophils % (Manual) Basophils % Basophils % (Manual) Nucleated RBC % Platelet Estimate PT with INR INR PTT (Actin FS) Sodium 139 Potassium 4.3 Chloride 104 Carbon Dioxide 27 Anion Gap 8 BUN 21 H Creatinine 1.4 H Creat Clearance w eGFR 49.01 POC Glucometer [phone] Random Glucose 125 H Calcium 8.5 Phosphorus 3.9 Magnesium 1.5 L Total Bilirubin 0.6 AST 17 ALT 15 Alkaline Phosphatase 51 Total Protein 5.9 L Albumin 3.0 L HOSPITAL COURSE: Date of Admission:08/25/18 Date of Discharge: 08/26/18 77 year old man with a PMH significant for HTN, HLD, DM and R carotid stenosis had right carotid endarterectomy 08/25/[address] Garza. He was admitted to the ICU for post op monitoring. Cleared for d/c today Carotid endarterectomy - High grade right carotid stenosis with hx of amaurosis fugax - PO day 1 - Ancef 2 G IVP q8h x 24 hrs - + JARROD drain removed - P/o bleeding, gauze saturated with reji blood from 2 sites along incision - Gauze changed 3x - Surgical team placed one suture to secure drain - Surgicell placed around drain ostomy with 4x4 dressing and tegaderms. - Bleeding controlled. - Monitor CBC - Pain management with PO Tramadol - Advance diet as tolerated Acute blood loss anemia - Hgb 12.2 -> 10.4 - Secondary to post op blood loss around JARROD drain site - PA added suture to secure drain; bleeding controlled - VSS - Monitor CBC HTN - Maintain SBP < 160 - ASA 81 mg PO qday - Amlodipine 5 mg PO qday - Losartan 100 mg PO qday - D/c Nicardipine 2.5mg/hr gtt HLD - Atorvastatin 10 mg PO QHS DM - Resume home Metformin 1000 mg PO qday Minutes to complete discharge: 30 Discharge Summary Reason For Visit: HIGH GRADE STENOSIS Current Active Problems Carotid stenosis, right (Acute) - Instructions Diet, Activity, Other Instructions: Dr. Garza Discharge Instructions Dear KAILYN SNADS, Post Operative Instructions Physical activity Resume your normal everyday activity as tolerated no heavy lifting or exercise until seen by your surgeon. You may walk unlimited amounts of and climb stairs. You may resume driving the car when you feel safe and comfortable behind the wheel. Wound care If you have a bandage, leave it on, and keep dry for 48 - 72 hours. After that time discard the outer bandage. If there are tapes on the skin under the outer bandage, leave them in place. They will peel off in the next 7 to 10 days. Do Not peel them off. You may shower 2 days after surgery. If there are tapes present on the skin, they can get wet. Diet There are no dietary restrictions. Eat healthy, high-fiber foods. Drink 6 to 8 glasses of liquid each day. This will assist in keeping your bowels are regular. Pain management You may take Tylenol or acetaminophen or Ibuprofen (for example, Motrin, Advil etc.) Any pain prescription medication ordered should be taken as prescribed for moderate to severe pain. Call Dr. Garza for any of the following: Severe pain not relieved by medication Fever of 101 or higher Excessive bleeding or drainage on dressing Call the office for a post operative appointment in 7 - 10 days. Referrals: Latoya Garza MD [Staff Physician] - Disposition: HOME - Home Medications Comprehensive Discharge Medication List: Ambulatory Orders Amlodipine Besylate 5 mg PO DAILY 08/24/18 Atorvastatin Ca [Lipitor] 10 mg PO HS 08/24/18 Losartan Potassium 100 mg PO DAILY 08/24/18 metFORMIN HCL [Glucophage -] 1,000 mg PO BID 08/24/18 Tramadol HCl 50 mg PO Q6H PRN #30 tablet MDD 4 08/26/18 This patient is new to me today: No Emergency Visit: No Critical Care patient: No - Discharge Referral Referred to [facility] No
[2018-08-26 13:07] VITALS: BP 121/56; PULSE 75
--- NOTE | 2018-08-26 13:25 | PATH ---
Surgical Pathology Report Patient Name: KAILYN SANDS [facility]. Rec. #: [id number] /Age/Gender: 1940 (Age: 77) / M Account: [id number] Location: ICU BAR HOST Taken: 08/25/2018 Received: 08/25/2018 Reported: 08/26/2018 Physicians: Latoya Garza M.D. Specimen(s) Received RIGHT CAROTID PLAQUE Clinical History High-grade stenosis Final Diagnosis CAROTID PLAQUE, RIGHT, ENDARTERECTOMY: ATHEROMATOUS AND CALCIFIED PLAQUE. Electronically Signed Sarah Balderas M.D. Gross Description Received in formalin labeled "right carotid plaque," is a 5 cm in length amezcua-yellow, bifurcated portion of plaque. [employer] Att[employer] sections are submitted in one cassette. 08/25/201808/25/2018
--- NOTE | 2018-08-26 15:15 | PN ---
Physical Exam: SUBJECTIVE: Patient seen and examined Stable, alert, no acute distress OBJECTIVE: Vital Signs Period Temp Pulse Resp BP Sys/Caballero Pulse Ox Last 24 Hr 98.4 F-100 F 58-82 10-20 97-141/55-68 95-100 GENERAL: Awake, alert HEAD: Normal with no signs of trauma. EYES: Pupils equal, round and reactive to light, extraocular movements intact, sclera anicteric, conjunctiva clear. No lid lag. EARS, NOSE, THROAT: Moist mucous membranes. NECK: + wound dressing intact LUNGS: Breath sounds equal, clear to auscultation bilaterally. No wheezes, and no crackles. No accessory muscle use. HEART: Regular rate and rhythm, normal S1 and S2 without murmur, rub or gallop. ABDOMEN: Soft, nontender, not distended, normoactive bowel sounds, no guarding, no rebound, no masses. No hepatomegaly or splenomegaly. MUSCULOSKELETAL: Normal range of motion at all joints. No bony deformities or tenderness. No CVA tenderness. UPPER EXTREMITIES: 2+ pulses, warm, well-perfused. No cyanosis. No clubbing. Cap refill <2 seconds. No peripheral edema. LOWER EXTREMITIES: 2+ pulses, warm, well-perfused. No calf tenderness. No peripheral edema. NEUROLOGICAL: awake, alert, on O2 mask PSYCHIATRIC: Cooperative. Good eye contact. SKIN: Warm, dry, normal turgor, no rashes or lesions noted. Laboratory Results - last 24 hr 08/25/18 08/25/18 08/25/18 14:45 14:45 14:45 WBC 8.8 RBC 4.12 Hgb 12.2 Hct 35.3 L MCV 85.6 MCH 29.7 MCHC 34.7 RDW 14.6 Plt Count 140 MPV 10.0 Absolute Neuts (auto) 8.0 Neutrophils % 91.6 H Neutrophils % (Manual) 78.0 Band Neutrophils % 13.0 Lymphocytes % 4.8 L Lymphocytes % (Manual) 7.0 L Monocytes % 3.3 L Monocytes % (Manual) 2 L Eosinophils % 0.1 Eosinophils % (Manual) 0.0 Basophils % 0.2 Basophils % (Manual) 0.0 Nucleated RBC % 0 Platelet Estimate Adequate PT with INR INR PTT (Actin FS) 30.5 Sodium 138 Potassium 4.6 Chloride 106 Carbon Dioxide 23 Anion Gap 10 BUN 17 Creatinine 1.2 Creat Clearance w eGFR 58.56 POC Glucometer Random Glucose 159 H Calcium 8.6 Phosphorus 3.5 Magnesium 1.5 L Total Bilirubin 0.8 AST 20 ALT 19 Alkaline Phosphatase 65 Total Protein 6.9 Albumin 3.5 08/25/18 08/25/18 08/25/18 14:45 17:19 21:44 WBC RBC Hgb Hct MCV MCH MCHC RDW Plt Count MPV Absolute Neuts (auto) Neutrophils % Neutrophils % (Manual) Band Neutrophils % Lymphocytes % Lymphocytes % (Manual) Monocytes % Monocytes % (Manual) Eosinophils % Eosinophils % (Manual) Basophils % Basophils % (Manual) Nucleated RBC % Platelet Estimate PT with INR 14.60 H INR 1.23 H PTT (Actin FS) Sodium Potassium Chloride Carbon Dioxide Anion Gap BUN Creatinine Creat Clearance w eGFR POC Glucometer 190.07599 236.61536 Random Glucose Calcium Phosphorus Magnesium Total Bilirubin AST ALT Alkaline Phosphatase Total Protein Albumin 08/26/18 08/26/18 08/26/18 05:30 05:30 05:30 WBC 7.3 RBC 3.69 L Hgb 10.4 L Hct 31.6 L MCV 85.7 MCH 28.1 MCHC 32.9 RDW 14.5 Plt Count 124 L MPV 9.6 Absolute Neuts (auto) 5.4 Neutrophils % 74.9 Neutrophils % (Manual) Band Neutrophils % Lymphocytes % 14.1 D Lymphocytes % (Manual) Monocytes % 10.4 H D Monocytes % (Manual) Eosinophils % 0.3 D Eosinophils % (Manual) Basophils % 0.3 Basophils % (Manual) Nucleated RBC % 0 Platelet Estimate PT with INR 15.10 H INR 1.28 H PTT (Actin FS) 33.8 Sodium 139 Potassium 4.3 Chloride 104 Carbon Dioxide 27 Anion Gap 8 BUN 21 H Creatinine 1.4 H Creat Clearance w eGFR 49.01 POC Glucometer Random Glucose 125 H Calcium 8.5 Phosphorus 3.9 Magnesium 1.5 L Total Bilirubin 0.6 AST 17 ALT 15 Alkaline Phosphatase 51 Total Protein 5.9 L Albumin 3.0 L 08/26/18 11:31 WBC RBC Hgb Hct MCV MCH MCHC RDW Plt Count MPV Absolute Neuts (auto) Neutrophils % Neutrophils % (Manual) Band Neutrophils % Lymphocytes % Lymphocytes % (Manual) Monocytes % Monocytes % (Manual) Eosinophils % Eosinophils % (Manual) Basophils % Basophils % (Manual) Nucleated RBC % Platelet Estimate PT with INR INR PTT (Actin FS) Sodium Potassium Chloride Carbon Dioxide Anion Gap BUN Creatinine Creat Clearance w eGFR POC Glucometer 214.35117 Random Glucose Calcium Phosphorus Magnesium Total Bilirubin AST ALT Alkaline Phosphatase Total Protein Albumin ASSESSMENT/PLAN: 77 year old man with history of HTN, HLD, DM and R carotid stenosis who presents s/p R carotid endarterectomy. Vascular R carotid stenosis s/p carotid endartectomy - Neuro check Q2H - BP monitoring < 160 systolic Cardio HTN, HLD - Amlodipine 5mg daily - ASA 81 mg daily - Atorvastatin 10mg HS - Losartan 100mg daily - Nicardipine 2.5mg/hr gtt Pulm - 5L on O2 mask, supplemental oxygen as needed - IS Endo DM - Metformin 1gm BID Analgesia - Fentanyl 50mcg IVP F/E/N - diabetic diet GI ppx: DVT ppx: SCDs Lines, Tubes: JARROD drain at R incision site, PIV Code status: Full Dispo: stable for discharge Visit type - Emergency Visit Emergency Visit: No - New Patient This patient is new to me today: No - Critical Care Critical Care patient: Yes Total Critical Care Time (in minutes): 35 Critical Care Statement: The care of this patient involved high complexity decision making to prevent further life threatening deterioration of the patient 's condition and/or to evaluate & treat vital organ system(s) failure or risk of failure.
== END 2018-08-26 14:47 | disposition home or self-care (01) | DRG 26 ==
LOC: EDSTATUS 13:00 → JSAMEDAYSX 08-25 06:50 → JICU 08-25 11:45
PROVIDERS: ADMIT Internal Medicine; ATTEND Nurse Practitioner Adult Health
PROC: 05U Upper Veins, Supplement (ICD-10-PCS; 2018-08-25)
PROC: 3E06017 Introduction of Other Thrombolytic into Central Artery, Open Approach (ICD-10-PCS; 2018-08-25)
PROC: 03CH3ZZ Extirpation of Matter from Right Common Carotid Artery, Percutaneous Approach (ICD-10-PCS; principal; 2018-08-25 09:00)
DX: I65.21 Occlusion and stenosis of right carotid artery (principal); D62 Acute posthemorrhagic anemia; N17.9 Acute kidney failure, unspecified; E11.9 Type 2 diabetes mellitus without complications; I10 Essential (primary) hypertension; E78.5 Hyperlipidemia, unspecified; Z79.84 Long term (current) use of oral hypoglycemic drugs; Z85.46 Personal history of malignant neoplasm of prostate; M10.9 Gout, unspecified; H40.9 Unspecified glaucoma
CPT/HCPCS: 36415; 80053; 81003; 82962; 83735; 84100; 85025; 85610; 85730; 86850; 86900; 86901; 88304-TC; J1644